=== PATIENT | female | born 1995 | race Caucasian/White ===

== ENCOUNTER 2018-07-07 19:17 | Emergency (ER) | payer SELFPAY ==
[~2018-07-07] VITALS: Ht 157.5 cm; Wt 78.8 kg
[2018-07-07 19:38] VITALS: Ht 157.5 cm; Wt 78.8 kg
--- NOTE | 2018-07-07 21:35 | ERD ---
ER Documentation Chief Complaint Chief Complaint LT INDEX FINGER LACERATION X2 HRS HPI 22-year-old female presents with left hand laceration sustained with a knife at home. She has no restricted range of motion weakness. She is uncertain of tetanus status. ROS All systems reviewed and are negative except as per history of present illness. Allergies Allergies: Coded Allergies: No Known Allergy (Unverified , 07/07/18) FmHx Family History: No diabetes, No coronary disease, No other Physical Exam Vitals Vital Signs Date Temp Pulse Resp B/P (MAP) Pulse Ox O2 O2 Flow FiO2 Time Delivery Rate 07/07/18 98.9 85 17 147/86 99 19:38 (106) Physical Exam Const: No acute distress Head: Atraumatic Eyes: Normal Conjunctiva ENT: Normal External Ears, Nose and Mouth. Neck: Full range of motion. No meningismus. Resp: Clear to auscultation bilaterally Cardio: Regular rate and rhythm, no murmurs Abd: Soft, non tender, non distended. Normal bowel sounds Skin: No petechiae or rashes Back: No midline or flank tenderness Ext: No cyanosis, or edema. Left hand with approximately 2cm laceration just lateral to the second MCP joint. No deficits, restricted range of motion, weakness, redness, discharge or bleeding. Neur: Awake and alert Psych: Normal Mood and Affect Results 24 hrs Current Medications Medications Dose Sig/Shaheen Start Time Status Last (Trade) Ordered Route PRN Stop Time Admin Dose Reason Admin 650 mg ONCE ONCE 07/07/18 07/07/18 Acetaminophen PO 22:00 21:43 (Tylenol 07/07/18 22:01 Tab) Lidocaine 20 ml ONCE ONCE 07/07/18 07/07/18 (Xylocaine SC 22:00 21:43 1% (Mdv) 20 07/07/18 22:01 ml) Procedures/MDM Patient presents with a left hand laceration without signs of tendon or neurologic deficits, ischemia or infection or suggestion of foreign body, fracture. Tetanus booster was given. Procedure note- 10 irrigated copiously with normal saline. 1 cc lidocaine was used for local nutrition. Three 5-0 nylon sutures were used to reapproximate the wound. Patient ulcerated procedure well and wound was dressed. \ Discharged home with recommendations for 2-day wound check in 7 days suture removal. She should return sooner for fevers, redness, new or worsening symptoms. Departure Diagnosis: Primary Impression: Laceration Condition: Stable Patient Instructions: Laceration, Hand Additional Instructions: 2 days wound check in 7 days suture removal. Recheck sooner for fevers, redness, new symptoms. Take Tylenol every 4 hours for pain. JESSICA BARRERA MD July 07, 2018 21:35
[2018-07-07] MEDS ORDERED: ACETAMINOPHEN 325 MG TAB PO ONE (22:00)
[2018-07-07] MEDS ORDERED: LIDOCAINE 1% (MDV) 20 ML INJ SC ONE (22:00)
[2018-07-07 22:07] VITALS: BP 128/72; PULSE 82; RESP 16
== END 2018-07-07 22:07 | disposition home or self-care (01) ==
LOC: FTE 19:17
DX: S61.311A Laceration without foreign body of left index finger with damage to nail, initial encounter (principal); W26.0XXA Contact with knife, initial encounter; Y92.009 Unspecified place in unspecified non-institutional (private) residence as the place of occurrence of the external cause